=== PATIENT | male | born 1940 | race Caucasian/White ===

== ENCOUNTER 2021-11-09 14:33 | Inpatient (IN) | payer OTHER ==
[~2021-11-09] VITALS: Ht 177.8 cm; Wt 102.1 kg
--- NOTE | 2021-11-09 14:35 | NUR ---
Pt brought by self, A&Ox4, pt presents to ER with diffuse abdominal pain and black stool, pt states he took peptobismol, denies N/V, skin pink and warm, cap refill <3, VSS, will cont to monitor.
--- NOTE | 2021-11-09 15:00 | NUR ---
Dr Tse evaluating patient at bedside
[2021-11-09 15:14] VITALS: BP_SYST 199
[2021-11-09 15:53] LABS: BASOPHILS % (AUTO) 0.4 % (0.0-2.0); EOSINOPHILS % (AUTO) 0.6 % (0.0-4.0); HEMATOCRIT 41.6 % (36-54); HEMOGLOBIN 13.9 g/dL (14.0-18.0); LYMPHOCYTES # (AUTO) 1.4 K/uL (1.0-5.5); MEAN CORPUSCULAR HEMOGLOBIN 28 pg (27-31); MEAN CORPUSCULAR HGB CONC 34 % (32-36); MEAN CORPUSCULAR VOLUME 85 fL (79.0-98.0); MONOCYTES # (AUTO) 0.5 K/uL (0.0-1.0); MONOCYTES % (AUTO) 7.8 % (1.7-9.3); NEUTROPHILS # (AUTO) 4.5 K/uL (1.8-7.7); NEUTROPHILS % (AUTO) 69.2 % (40.0-70.0); PLATELET COUNT (AUTO) 168 K/uL (130-430); RED CELL DISTRIBUTION WIDTH 14.3 % (9.0-15.0); WHITE BLOOD COUNT (AUTO) 6.5 K/uL (4.8-10.8)
[2021-11-09 16:43] LABS: INR 1.1 (0.80-1.20); PROTHROMBIN TIME 10.9 SECS (9.5-12.5)
[2021-11-09 16:53] LABS: ALANINE AMINOTRANSFERASE 22 U/L (12-78); ALBUMIN 3.2 g/dL (3.4-4.8); ASPARTATE AMINOTRANSFERASE 22 U/L (10-37); CALCIUM 9.6 mg/dL (8.4-11.0); CREATININE 0.83 mg/dL (0.55-1.30); GLUCOSE 139 mg/dL (70-99); TOTAL BILIRUBIN 0.4 mg/dL (0.0-1.0); UREA NITROGEN, BLOOD 15 mg/dL (8-21)
[2021-11-09 18:14] LABS: ANION GAP 8 (5-15); CHLORIDE 103 mmol/L (98-107); POTASSIUM 3.6 mmol/L (3.5-5.1); SODIUM SERUM 139 mmol/L (136-145)
[2021-11-09 18:16] LABS: LIPASE 2623 U/L (73-393)
[2021-11-09] MEDS ORDERED: MORPHINE 4 MG INJ. 4 MG/ML VIAL IVP ONE (18:30)
--- NOTE | 2021-11-09 18:53 | NUR ---
Admit bed requested Patient will be admitted to care of . Admitted to MEDSURG unit. Diagnosis ACUTE PANCREATITIS Inpatient (Yes or No) Y Observation (Yes or No) N Orientation concerns or request close to nursing station (Yes or No) N Covid Status PENDING On vent or bipap N Isolation requirements N Needs a sitter N From Home (Yes or if No enter name of facility) Y Requires Dialysis (Yes or No) N Med Rec Completed (Yes of No) PENDING
--- NOTE | 2021-11-09 19:30 | NUR ---
Patient to ER bed [facility] 3 to gown for evaluation. Side rails up. Report given to Kathe .
--- NOTE | 2021-11-09 19:55 | NUR ---
Admit bed requested Patient will be admitted to care of . Admitted to MS unit. Diagnosis ACUTE PANCREATITIS Inpatient (Yes or No) YES Observation (Yes or No) NO Orientation concerns or request close to nursing station (Yes or No) NO Covid Status PENDING On vent or bipap NO Isolation requirements NO Needs a sitter NO From Home (Yes or if No enter name of facility) YES Requires Dialysis (Yes or No) NO Med Rec Completed (Yes of No) PENDING
--- NOTE | 2021-11-09 20:28 | NUR ---
# 20 gauge angiocath placed to left arm. Use of asceptic technique. Opsite placed over site. Blood return noted. Blood for lab drawn from site. Flushed with 10 cc of normal saline. No evidence of infiltration noted. Patient tolerated well.
[2021-11-09] MEDS: D5/0.45 NS 1,000 ML IV SCH (20:35)
[2021-11-09] MEDS ORDERED: LOSA100T3 PO (21:02)
[2021-11-09] MEDS ORDERED: POTA99CA (21:03)
--- NOTE | 2021-11-09 21:41 | NUR ---
[facility] AND NOT IN ANY DISTRESS.
--- NOTE | 2021-11-09 22:00 | NUR ---
Received Patient from ED A pleasant 81 years old male patient arrived to med surg / Telemetry unit via wheelchair. Diagnosed with pancreatitis. history of hypertension, Diabetes Mellitus, Hyperlipidemia, Hard of hearing. Full code status. No known allergy. Under the care of DR. Timmy Hoskins. Alert and oriented x4, ambulatory. Hebrew speaking. Keep NPO at the moment until further orders. Covid negative, test done at the ED. Not on respiratory distress, calm.
[2021-11-09 22:14] VITALS: BP_SYST 153
[2021-11-10 04:00] VITALS: BP_SYST 149
--- NOTE | 2021-11-10 05:27 | NUR ---
Consultation Paged Reason for Consultation: Acute Pancreatitis Was consult called: Y Person who was notified: Radha Consulting Physician: Dr. Lopez (Dr. Kendrick is construction carpenters helper) Ordering Physician: Timmy Sumner
[2021-11-10] MEDS: D5/0.45 NS 1,000 ML IV SCH ×2 (05:45→14:45)
[2021-11-10 07:07] LABS: ALANINE AMINOTRANSFERASE 17 U/L (12-78); ALBUMIN 2.7 g/dL (3.4-4.8); ANION GAP 4 (5-15); ASPARTATE AMINOTRANSFERASE 20 U/L (10-37); CALCIUM 7.9 mg/dL (8.4-11.0); CHLORIDE 102 mmol/L (98-107); CREATININE 0.77 mg/dL (0.55-1.30); GLUCOSE 206 mg/dL (70-99); LACTATE DEHYDROGENASE 113 U/L (85-227); POTASSIUM 3.4 mmol/L (3.5-5.1); SODIUM SERUM 137 mmol/L (136-145); TOTAL BILIRUBIN 0.4 mg/dL (0.0-1.0); UREA NITROGEN, BLOOD 10 mg/dL (8-21)
[2021-11-10 07:43] LABS: BASOPHILS % (AUTO) 0.6 % (0.0-2.0); EOSINOPHILS # (AUTO) 0.1 K/uL (0.0-0.4); EOSINOPHILS % (AUTO) 1.2 % (0.0-4.0); HEMATOCRIT 38.7 % (36-54); HEMOGLOBIN 13.1 g/dL (14.0-18.0); LYMPHOCYTES % (AUTO) 20.3 % (20.5-51.5); MEAN CORPUSCULAR HEMOGLOBIN 29 pg (27-31); MEAN CORPUSCULAR HGB CONC 34 % (32-36); MEAN CORPUSCULAR VOLUME 85 fL (79.0-98.0); MONOCYTES # (AUTO) 0.5 K/uL (0.0-1.0); MONOCYTES % (AUTO) 10.4 % (1.7-9.3); NEUTROPHILS # (AUTO) 3.2 K/uL (1.8-7.7); NEUTROPHILS % (AUTO) 67.5 % (40.0-70.0); PLATELET COUNT (AUTO) 144 K/uL (130-430); RED BLOOD CELL COUNT(AUTO) 4.55 MIL/uL (4.2-6.2); RED CELL DISTRIBUTION WIDTH 14.1 % (9.0-15.0)
[2021-11-10 07:57] LABS: INR 1.1 (0.80-1.20); PROTHROMBIN TIME 10.9 SECS (9.5-12.5)
[2021-11-10 07:59] LABS: WHITE BLOOD COUNT (AUTO) 4.7 K/uL (4.8-10.8)
[2021-11-10 08:47] LABS: CHOLESTEROL 92 mg/dL (<200); HDL CHOLESTEROL 31 mg/dL (>45); LDL CHOLESTEROL 44 mg/dL (<100); TRIGLYCERIDES 89 mg/dL (30-150)
[2021-11-10] MEDS ORDERED: MORPHINE 4 MG INJ. 4 MG/ML VIAL IVP PRN (09:00)
[2021-11-10] MEDS ORDERED: MORPHINE 2 MG/ML INJ. SYRINGE IVP PRN (09:00)
[2021-11-10] MEDS ORDERED: LORazepam 2 MG/ML VIAL IVP PRN (09:00)
[2021-11-10] MEDS ORDERED: NALOXONE HCL 0.4 MG/ML AMP (NARCAN) IVP PRN (09:00)
[2021-11-10] MEDS ORDERED: ONDANSETRON HCL 4 MG/2 ML VIAL IVP PRN (09:00)
[2021-11-10] MEDS ORDERED: D5W 1,000 ML IV PRN (09:15)
[2021-11-10] MEDS ORDERED: GLUCOSE (DEXTROSE) ORAL GEL -Adults PO PRN (09:15)
[2021-11-10] MEDS ORDERED: DEXTROSE 50%-WATER 50 ML DISP.SYRIN IVP PRN (09:15)
[2021-11-10] MEDS ORDERED: MEPERIDINE 100 MG INJ. 100 MG/ML VIAL ONE (10:13)
[2021-11-10] MEDS: MIDAZOLAM HCL 5 MG/5 ML VIAL ONE ×2 (10:17→10:20)
[2021-11-10] MEDS: INSULIN REGULAR, HUMAN 100 UNITS/ML, 10 ML VIAL (humuLIN R) SUBCUT PRN (13:07)
[2021-11-10] MEDS ORDERED: LOVA20TA2 PO (14:17)
[2021-11-10] MEDS ORDERED: INSU100I20 SQ (14:17)
[2021-11-10] MEDS ORDERED: HYDR25TA4 PO (14:17)
[2021-11-10] MEDS ORDERED: PANT20TA2 PO (14:18)
[2021-11-10] MEDS ORDERED: METF-518 PO (14:22)
[2021-11-10] MEDS ORDERED: ATEN-41 PO (14:22)
[2021-11-10] MEDS ORDERED: POTASSIUM CHLORIDE 20 MEQ TAB.PRT.SR PO ONE (18:30)
[2021-11-10 19:00] VITALS: BP_SYST 150
[2021-11-10] MEDS: NACL 0.9% 1,000 ML IV SCH (19:06)
[2021-11-10 20:07] VITALS: BP_SYST 150
[2021-11-10] MEDS ORDERED: INSULIN DETEMIR 24 UNIT SQ SCH (21:00)
[2021-11-10] MEDS: LOSARTAN POTASSIUM 50 MG TABLET (COZAAR) PO SCH (21:10)
[2021-11-11] MEDS: INSULIN REGULAR, HUMAN 100 UNITS/ML, 10 ML VIAL (humuLIN R) SUBCUT PRN ×3 (00:03→12:40)
[2021-11-11] MEDS: D5/0.45 NS 1,000 ML IV SCH ×3 (02:23→21:16)
[2021-11-11 04:00] VITALS: BP_SYST 139
[2021-11-11 06:40] LABS: BASOPHILS % (AUTO) 0.2 % (0.0-2.0); EOSINOPHILS % (AUTO) 0.8 % (0.0-4.0); HEMATOCRIT 37.2 % (36-54); HEMOGLOBIN 12.7 g/dL (14.0-18.0); LYMPHOCYTES # (AUTO) 1.1 K/uL (1.0-5.5); LYMPHOCYTES % (AUTO) 23.7 % (20.5-51.5); MEAN CORPUSCULAR HEMOGLOBIN 29 pg (27-31); MEAN CORPUSCULAR HGB CONC 34 % (32-36); MEAN CORPUSCULAR VOLUME 84 fL (79.0-98.0); MONOCYTES # (AUTO) 0.5 K/uL (0.0-1.0); MONOCYTES % (AUTO) 10.5 % (1.7-9.3); NEUTROPHILS # (AUTO) 2.9 K/uL (1.8-7.7); NEUTROPHILS % (AUTO) 64.8 % (40.0-70.0); PLATELET COUNT (AUTO) 152 K/uL (130-430); RED BLOOD CELL COUNT(AUTO) 4.42 MIL/uL (4.2-6.2); RED CELL DISTRIBUTION WIDTH 14.3 % (9.0-15.0); WHITE BLOOD COUNT (AUTO) 4.6 K/uL (4.8-10.8)
[2021-11-11 08:05] VITALS: BP_SYST 151
[2021-11-11 08:06] LABS: AFP, TUMOR MARKER 1.6 ng/mL (0.0-6.4)
[2021-11-11 08:34] LABS: ALANINE AMINOTRANSFERASE 11 U/L (12-78); ALBUMIN 2.6 g/dL (3.4-4.8); AMYLASE 196 U/L (0-100); ANION GAP 6 (5-15); ASPARTATE AMINOTRANSFERASE 16 U/L (10-37); CALCIUM 8.5 mg/dL (8.4-11.0); CHLORIDE 105 mmol/L (98-107); GLUCOSE 192 mg/dL (70-99); LIPASE 1726 U/L (73-393); POTASSIUM 3.6 mmol/L (3.5-5.1); SODIUM SERUM 139 mmol/L (136-145); TOTAL BILIRUBIN 0.3 mg/dL (0.0-1.0); UREA NITROGEN, BLOOD 7 mg/dL (8-21)
[2021-11-11] MEDS ORDERED: HYDROcodone/ACETAMIN 5-325 MG TAB (NORCO/ VICODIN) PO PRN (08:45)
[2021-11-11] MEDS ORDERED: NALOXONE HCL 0.4 MG/ML AMP (NARCAN) IVP PRN ×2 (08:45)
[2021-11-11] MEDS ORDERED: ACETAMINOPHEN/CODEINE 300 MG-30 MG TABLET PO PRN (08:45)
[2021-11-11] MEDS ORDERED: ACETAMINOPHEN 325 MG TABLET PO PRN (08:45)
[2021-11-11 09:16] LABS: ANTI NUCLEAR AB WITH REFLEX Negative (Negative)
[2021-11-11] MEDS: HYDROCHLOROTHIAZIDE 25 MG TABLET (HCTZ) PO SCH (10:03)
[2021-11-11] MEDS: ATENOLOL 25 MG TABLET(TENORMIN) PO SCH (10:03)
[2021-11-11] MEDS: ATORVASTATIN 10 MG TABLET PO SCH (10:03)
--- NOTE | 2021-11-11 12:04 | NUR ---
CONSULTATION PAGED/CALLED Reason for Consultation: [] pancreas mass Person Who was Notified: []Jaciel Consulting Physician: [] Dr. Richard Linter Operator Specialty: []Onco Ordering Physician: []nimo Sumner
[2021-11-11] MEDS: NACL 0.9% 1,000 ML IV SCH (15:40)
[2021-11-11] MEDS ORDERED: LOVASTATIN 20 MG TABLET PO SCH (18:00)
[2021-11-11 20:00] VITALS: BP_SYST 170
[2021-11-11] MEDS ORDERED: INSULIN GLARGINE 100 UNITS/ML 10 ML VIAL SUBCUT SCH (21:00)
[2021-11-11] MEDS: LOSARTAN POTASSIUM 50 MG TABLET (COZAAR) PO SCH (21:05)
[2021-11-12] MEDS: INSULIN REGULAR, HUMAN 100 UNITS/ML, 10 ML VIAL (humuLIN R) SUBCUT PRN ×3 (02:46→12:48)
[2021-11-12 03:24] VITALS: BP_SYST 170
[2021-11-12 04:00] VITALS: BP_SYST 133
[2021-11-12] MEDS: D5/0.45 NS 1,000 ML IV SCH (06:45)
[2021-11-12 07:00] VITALS: BP_SYST 148
[2021-11-12 08:00] VITALS: BP_SYST 148
[2021-11-12 08:14] LABS: BASOPHILS % (AUTO) 0.3 % (0.0-2.0); EOSINOPHILS % (AUTO) 0.9 % (0.0-4.0); HEMATOCRIT 38.6 % (36-54); LYMPHOCYTES # (AUTO) 1.2 K/uL (1.0-5.5); LYMPHOCYTES % (AUTO) 25.2 % (20.5-51.5); MEAN CORPUSCULAR HEMOGLOBIN 29 pg (27-31); MEAN CORPUSCULAR HGB CONC 34 % (32-36); MEAN CORPUSCULAR VOLUME 85 fL (79.0-98.0); MONOCYTES # (AUTO) 0.5 K/uL (0.0-1.0); MONOCYTES % (AUTO) 10.5 % (1.7-9.3); NEUTROPHILS % (AUTO) 63.1 % (40.0-70.0); PLATELET COUNT (AUTO) 162 K/uL (130-430); RED BLOOD CELL COUNT(AUTO) 4.54 MIL/uL (4.2-6.2); WHITE BLOOD COUNT (AUTO) 4.8 K/uL (4.8-10.8)
[2021-11-12] MEDS ORDERED: PANTOPRAZOLE SODIUM 40 MG TAB PO SCH (09:00)
[2021-11-12] MEDS ORDERED: LIP10 PO (09:11)
[2021-11-12] MEDS: ATORVASTATIN 10 MG TABLET PO SCH (09:21)
[2021-11-12] MEDS: ATENOLOL 25 MG TABLET(TENORMIN) PO SCH (09:21)
[2021-11-12] MEDS: HYDROCHLOROTHIAZIDE 25 MG TABLET (HCTZ) PO SCH (09:22)
[2021-11-12 10:11] LABS: ALANINE AMINOTRANSFERASE 17 U/L (12-78); ALBUMIN 2.7 g/dL (3.4-4.8); AMYLASE 202 U/L (0-100); ANION GAP 6 (5-15); ASPARTATE AMINOTRANSFERASE 20 U/L (10-37); CHLORIDE 103 mmol/L (98-107); CREATININE 0.72 mg/dL (0.55-1.30); GLUCOSE 233 mg/dL (70-99); LIPASE 1971 U/L (73-393); POTASSIUM 3.5 mmol/L (3.5-5.1); SODIUM SERUM 138 mmol/L (136-145); TOTAL BILIRUBIN 0.4 mg/dL (0.0-1.0); UREA NITROGEN, BLOOD 8 mg/dL (8-21)
[2021-11-12] MEDS: NACL 0.9% 1,000 ML IV SCH (11:39)
[2021-11-12 13:01] VITALS: BP_SYST 148
[2021-11-15 12:03] LABS: CARBOHYDRATE AG 19-9 179 U/mL (0-35)
== END 2021-11-12 13:10 | disposition home health service (06) | DRG 439 ==
LOC: SED 14:33 → SMU 18:33
PROVIDERS: ADMIT Preventive Medicine Preventive Medicine/Occupational Environmental Medicine; ATTEND Preventive Medicine Preventive Medicine/Occupational Environmental Medicine
PROC: 0DB98ZX Excision of Duodenum, Via Natural or Artificial Opening Endoscopic, Diagnostic (ICD-10-PCS; principal; 2021-11-11)
PROC: 0DB68ZX Excision of Stomach, Via Natural or Artificial Opening Endoscopic, Diagnostic (ICD-10-PCS; 2021-11-11)
DX: K85.90 Acute pancreatitis without necrosis or infection, unspecified (principal); E44.1 Mild protein-calorie malnutrition; E11.65 Type 2 diabetes mellitus with hyperglycemia; E88.09 Other disorders of plasma-protein metabolism, not elsewhere classified; K86.9 Disease of pancreas, unspecified; I10 Essential (primary) hypertension; Z20.822 Contact with and (suspected) exposure to COVID-19; Z79.899 Other long term (current) drug therapy
CPT/HCPCS: 36415; 43239; 71045; 76376; 80053; 80061; 82105; 82150; 82378; 82787; 82962; 83615; 83690; 83880; 84484; 85025; 85610-TC; 85730-TC; 86038; 86301; 86886; 86900; 86901; 87081; 88305; 88312; 88313; 93005; 96374; 99285; J1815; J2175; J2250; J2270; Q9967